=== PATIENT | female | born 1990 | race Caucasian/White ===

== ENCOUNTER 2019-03-07 16:30 | Outpatient (CLI) | payer MEDICAID ==
[2019-03-07 18:22] LABS: ADD UMIC NO; UR ASCORBIC ACID 20 mg/dL (NEGATIVE); UR BILIRUBIN (Dip) NEGATIVE (NEGATIVE); UR BLOOD (Dip) NEGATIVE (NEGATIVE); UR CLARITY CLEAR (CLEAR); UR COLOR YELLOW (YELLOW); UR GLUCOSE (Dip) NEGATIVE (NEGATIVE); UR KETONES (Dip) NEGATIVE (NEGATIVE); UR LEUKOCYTE ESTERASE (Dip) NEGATIVE Leu/ul (NEGATIVE); UR NITRITE (Dip) NEGATIVE (NEGATIVE); UR SPECIFIC GRAVITY (Dip) 1.011 (1.003-1.030); UR TOTAL PROTEIN (Dip) NEGATIVE (NEGATIVE); UR UROBILINOGEN (Dip) NEGATIVE (NEGATIVE)
[2019-03-07 18:27] LABS: ADD MAN DIFF? NO
[2019-03-07 18:29] LABS: BASOPHILS % 0.3 % (0.0-2.0); EOSINOPHILS % 0.2 % (0.0-7.0); HEMATOCRIT 36.5 % (37.0-47.0); HEMOGLOBIN 12.4 g/dl (12.0-16.0); LYMPHOCYTES # 1.7 10^3/ul (0.8-2.9); LYMPHOCYTES % 18.9 % (15.0-51.0); MEAN CORPUSCULAR HEMOGLOBIN 31.2 pg (29.0-33.0); MEAN CORPUSCULAR VOLUME 91.7 fl (82.0-101.0); MEAN PLATELET VOLUME 11.1 fl (7.4-10.4); MONOCYTE # 0.5 10^3/ul (0.3-0.9); NEUTROPHIL # 6.7 10^3/ul (1.6-7.5); NEUTROPHILS % 74.9 % (39.0-77.0); PLATELET COUNT 233 10^3/UL (140-415); RED BLOOD COUNT 3.98 10^6/ul (4.20-5.40); RED CELL DISTRIBUTION WIDTH 13.1 % (11.5-14.5)
[2019-03-07 18:48] LABS: ALANINE AMINOTRANSFERASE 16 IU/L (13-69); ALBUMIN 3.6 g/dl (3.3-4.9); ALBUMIN/GLOBULIN RATIO 1.09; ALKALINE PHOSPHATASE 208 IU/L (42-121); ANION GAP 12 (5-13); ASPARTATE AMINO TRANSFERASE 23 IU/L (15-46); BILIRUBIN,INDIRECT 0.3 mg/dl (0-1.1); BILIRUBIN,TOTAL 0.3 mg/dl (0.2-1.3); BLOOD UREA NITROGEN 12 mg/dl (7-20); CALCIUM 9.4 mg/dl (8.4-10.2); CARBON DIOXIDE 20 mmol/L (21-31); CHLORIDE 104 mmol/L (97-110); CREATININE 0.62 mg/dl (0.44-1.00); Estimated GFR > 60 mL/min (>60); GLUCOSE 91 mg/dl (70-220); INR 0.87; PARTIAL THROMBOPLASTIN TIME 25.6 Sec (23.0-35.0); POTASSIUM 3.9 mmol/L (3.5-5.1); PROTIME 11.9 Sec (11.9-14.9); PT RATIO 0.9; SODIUM 136 mmol/L (135-144); TOTAL PROTEIN 6.9 g/dl (6.1-8.1)
== END 2019-03-07 20:16 | disposition home or self-care (01) ==
LOC: OBT 16:30 → L-D 16:30 → OBT 20:16
DX: O14.93 Unspecified pre-eclampsia, third trimester (principal); O13.3 Gestational [pregnancy-induced] hypertension without significant proteinuria, third trimester; Z3A.38 38 weeks gestation of pregnancy
CPT/HCPCS: 76815; 76818; 80053; 81003; 84560; 85025; 85384; 85610; 85730

== ENCOUNTER 2019-03-10 14:50 | Outpatient (CLI) | payer MEDICAID ==
[2019-03-10 15:58] LABS: COLLECTION PERIOD 24 hrs
[2019-03-10 16:33] LABS: COLLECTION PERIOD 24 hrs; CREATININE CLEARANCE 36.1 mls/min (84.0-162.0); CREATININE,URINE RANDOM 21.49 mg/dl (20-320); SCRET 0.62 mg/dl (0.44-1.00); VOLUME 1500 ml/24hrs; VOLUME 1500 mls
[2019-03-10 16:57] LABS: ADD MAN DIFF? NO
[2019-03-10 17:01] LABS: WHITE BLOOD COUNT 6.5 10^3/ul (4.8-10.8)
[2019-03-10 17:01] LABS: BASOPHILS % 0.5 % (0.0-2.0); EOSINOPHILS % 0.3 % (0.0-7.0); HEMATOCRIT 36.8 % (37.0-47.0); HEMOGLOBIN 12.5 g/dl (12.0-16.0); LYMPHOCYTES # 1.6 10^3/ul (0.8-2.9); LYMPHOCYTES % 24.3 % (15.0-51.0); MEAN CORPUSCULAR HEMOGLOBIN 30.9 pg (29.0-33.0); MEAN CORPUSCULAR VOLUME 91.1 fl (82.0-101.0); MONOCYTE # 0.5 10^3/ul (0.3-0.9); NEUTROPHIL # 4.4 10^3/ul (1.6-7.5); NEUTROPHILS % 67.4 % (39.0-77.0); PLATELET COUNT 245 10^3/UL (140-415); RED BLOOD COUNT 4.04 10^6/ul (4.20-5.40); RED CELL DISTRIBUTION WIDTH 13.1 % (11.5-14.5)
[2019-03-10 17:22] LABS: INR 0.91; PROTIME 12.4 Sec (11.9-14.9)
[2019-03-10 17:26] LABS: ALANINE AMINOTRANSFERASE 22 IU/L (13-69); ALBUMIN 3.7 g/dl (3.3-4.9); ALBUMIN/GLOBULIN RATIO 1.05; ALKALINE PHOSPHATASE 210 IU/L (42-121); ANION GAP 11 (5-13); ASPARTATE AMINO TRANSFERASE 39 IU/L (15-46); BILIRUBIN,INDIRECT 0.4 mg/dl (0-1.1); BILIRUBIN,TOTAL 0.4 mg/dl (0.2-1.3); BLOOD UREA NITROGEN 12 mg/dl (7-20); CALCIUM 9.9 mg/dl (8.4-10.2); CARBON DIOXIDE 22 mmol/L (21-31); CHLORIDE 104 mmol/L (97-110); CREATININE 0.69 mg/dl (0.44-1.00); Estimated GFR > 60 mL/min (>60); GLUCOSE 86 mg/dl (70-220); POTASSIUM 4.6 mmol/L (3.5-5.1); SODIUM 137 mmol/L (135-144); TOTAL PROTEIN 7.2 g/dl (6.1-8.1); URIC ACID 6.9 mg/dl (3.1-7.9)
== END 2019-03-10 20:50 | disposition left against medical advice (07) ==
LOC: OBT 14:50 → L-D 14:51 → OBT 20:50
DX: O13.3 Gestational [pregnancy-induced] hypertension without significant proteinuria, third trimester (principal); Z3A.39 39 weeks gestation of pregnancy
CPT/HCPCS: 76818; 80053; 82575; 84156; 84560; 85025; 85384; 85610; 85730

== ENCOUNTER 2019-03-12 06:40 | Inpatient (IN) | payer MEDICAID ==
[2019-03-12] MEDS ORDERED: LIDOCAINE 1% (MPF) 30 ML INJ INJ (07:30)
[2019-03-12] MEDS ORDERED: MISOPROSTOL 200 MCG TAB PR (07:30)
[2019-03-12] MEDS ORDERED: OXYTOCIN 30 UNITS/LR 500 ML IV ×5 (07:30→23:00)
[2019-03-12] MEDS ORDERED: METHYLERGONOVINE 0.2 MG INJ IM ×2 (07:30→23:00)
[2019-03-12] MEDS: LACTATED RINGER'S 1,000 ML IV ×2 (09:32→18:20)
[2019-03-12 09:42] LABS: ADD MAN DIFF? NO
[2019-03-12 09:47] LABS: WHITE BLOOD COUNT 7.7 10^3/ul (4.8-10.8)
[2019-03-12 09:47] LABS: BASOPHILS % 0.4 % (0.0-2.0); EOSINOPHILS % 0.5 % (0.0-7.0); HEMOGLOBIN 13.6 g/dl (12.0-16.0); LYMPHOCYTES # 2.2 10^3/ul (0.8-2.9); MEAN CORPUSCULAR HEMOGLOBIN 30.4 pg (29.0-33.0); MEAN CORPUSCULAR HGB CONC 33.2 g/dl (32.0-37.0); MEAN CORPUSCULAR VOLUME 91.7 fl (82.0-101.0); MEAN PLATELET VOLUME 11.2 fl (7.4-10.4); MONOCYTE # 0.5 10^3/ul (0.3-0.9); MONOCYTES % 6.4 % (0.0-11.0); NEUTROPHIL # 4.8 10^3/ul (1.6-7.5); NEUTROPHILS % 62.8 % (39.0-77.0); PLATELET COUNT 257 10^3/UL (140-415); RED BLOOD COUNT 4.47 10^6/ul (4.20-5.40)
[2019-03-12] MEDS ORDERED: OXYTOCIN 30 UNITS/LR 500 ML BAG IV (10:01)
[2019-03-12 10:03] LABS: ALANINE AMINOTRANSFERASE 17 IU/L (13-69); ALBUMIN 4.2 g/dl (3.3-4.9); ALKALINE PHOSPHATASE 263 IU/L (42-121); ANION GAP 11 (5-13); ASPARTATE AMINO TRANSFERASE 32 IU/L (15-46); BILIRUBIN,INDIRECT 0.4 mg/dl (0-1.1); BILIRUBIN,TOTAL 0.4 mg/dl (0.2-1.3); BLOOD UREA NITROGEN 11 mg/dl (7-20); CALCIUM 9.7 mg/dl (8.4-10.2); CARBON DIOXIDE 25 mmol/L (21-31); CHLORIDE 100 mmol/L (97-110); Estimated GFR > 60 mL/min (>60); GLUCOSE 73 mg/dl (70-220); POTASSIUM 4.9 mmol/L (3.5-5.1); SODIUM 136 mmol/L (135-144); URIC ACID 6.9 mg/dl (3.1-7.9)
[2019-03-12 10:06] LABS: INR 0.85; PROTIME 11.7 Sec (11.9-14.9); PT RATIO 0.9
[2019-03-12 10:07] LABS: PARTIAL THROMBOPLASTIN TIME 26.3 Sec (23.0-35.0)
[2019-03-12] MEDS ORDERED: FENTAnyl 2MCG/ML-ROPIV 0.2% 100 ML (12:38)
[2019-03-12] MEDS ORDERED: AMPICILLIN 1 GM/NS (PMX) 50 ML IVPB (13:00)
[2019-03-12] MEDS ORDERED: FENTAnyl 2MCG/ML-ROPIV 0.2% 100 ML BAG EPI (13:30)
[2019-03-12] MEDS ORDERED: DIPHENHYDRAMINE 50 MG INJ IV ×2 (13:30→23:00)
[2019-03-12] MEDS ORDERED: ONDANSETRON 4 MG INJ IV ×3 (13:30→23:00)
[2019-03-12] MEDS ORDERED: NALOXONE (0.4 MG/ML) INJ IV (13:30)
[2019-03-12] MEDS ORDERED: AMPICILLIN 2 GM/NS (PMX) 100 ML (19:29)
[2019-03-12] MEDS ORDERED: MINERAL OIL LIGHT 10 ML VIAL TOP (19:30)
[2019-03-12] MEDS: AMPICILLIN 2 GM/NS (PMX) 100 ML IVPB (19:30)
[2019-03-12] MEDS: IBUPROFEN 600 MG TAB PO (21:30)
[2019-03-12 21:32] LABS: RAPID PLASMA REAGIN NONREACTIVE (NR)
[2019-03-12] MEDS ORDERED: MIDAZOLAM 1 MG/ML 2 ML INJ (22:01)
[2019-03-12] MEDS ORDERED: KETAMINE (100 MG/ML) 5 ML VIAL (22:01)
[2019-03-12] MEDS ORDERED: FENTAnyl 50 MCG/ML VIAL (22:01)
[2019-03-12] MEDS ORDERED: PHENYLephrine 10 MG INJ ×2 (22:16→22:41)
[2019-03-12 22:44] LABS: ADD MAN DIFF? NO
[2019-03-12 22:45] LABS: BASOPHIL # 0.1 10^3/ul (0.0-0.1); BASOPHILS % 0.2 % (0.0-2.0); HEMATOCRIT 24.7 % (37.0-47.0); LYMPHOCYTES # 2.9 10^3/ul (0.8-2.9); LYMPHOCYTES % 13.2 % (15.0-51.0); MEAN CORPUSCULAR HEMOGLOBIN 30.8 pg (29.0-33.0); MEAN CORPUSCULAR HGB CONC 32.4 g/dl (32.0-37.0); MONOCYTE # 0.5 10^3/ul (0.3-0.9); MONOCYTES % 2.2 % (0.0-11.0); NEUTROPHIL # 18.3 10^3/ul (1.6-7.5); NEUTROPHILS % 82.7 % (39.0-77.0); PLATELET COUNT 196 10^3/UL (140-415); RED CELL DISTRIBUTION WIDTH 13.1 % (11.5-14.5)
[2019-03-12 22:45] LABS: WHITE BLOOD COUNT 22.2 10^3/ul (4.8-10.8)
[2019-03-12] MEDS ORDERED: DIBUCAINE 1% 30 GM OINT TOP (23:00)
[2019-03-12] MEDS ORDERED: MAGNESIUM HYDROXIDE 30ML CUP PO (23:00)
[2019-03-12] MEDS ORDERED: MEPERIDINE 25 MG INJ IV (23:00)
[2019-03-12] MEDS ORDERED: SENNA/DOCUSATE NA (8.6MG/50MG) TAB PO (23:00)
[2019-03-12] MEDS ORDERED: EPHEDrine 25 MG/5 ML SYG IV (23:00)
[2019-03-12] MEDS ORDERED: morphine 2 MG INJ IV (23:00)
[2019-03-12] MEDS ORDERED: FENTAnyl 50 MCG/ML VIAL IV (23:00)
[2019-03-12] MEDS ORDERED: ALBUMIN HUMAN 5% 250 ML IV (23:00)
[2019-03-12] MEDS ORDERED: CARBOPROST 250 MCG INJ IM (23:00)
[2019-03-12] MEDS ORDERED: METOCLOPRAMIDE 10 MG INJ IV (23:00)
[2019-03-12] MEDS ORDERED: ACETAMINOPHEN 325 MG TAB PO ×2 (23:00)
[2019-03-12] MEDS ORDERED: OXYCODONE/ACETAMINOPHEN (5/325) TAB PO (23:00)
[2019-03-12 23:29] LABS: INR 1.12; PROTIME 14.5 Sec (11.9-14.9); PT RATIO 1.1
[2019-03-12 23:30] LABS: PARTIAL THROMBOPLASTIN TIME 35.8 Sec (23.0-35.0)
[2019-03-13] MEDS ORDERED: PIPER-TAZO 3.375 GM IV (PMX) 100 ML IVPB
[2019-03-13] MEDS: LACTATED RINGER'S 1,000 ML IV* (01:11)
[2019-03-13 01:20] LABS: ADD MAN DIFF? NO
[2019-03-13 01:21] LABS: WHITE BLOOD COUNT 33.1 10^3/ul (4.8-10.8)
[2019-03-13 01:21] LABS: ABNORMAL IP MESSAGE 1; BASOPHIL # 0.1 10^3/ul (0.0-0.1); BASOPHILS % 0.2 % (0.0-2.0); HEMATOCRIT 20.9 % (37.0-47.0); LYMPHOCYTES # 1.6 10^3/ul (0.8-2.9); LYMPHOCYTES % 4.7 % (15.0-51.0); MEAN CORPUSCULAR HEMOGLOBIN 31.1 pg (29.0-33.0); MEAN CORPUSCULAR HGB CONC 33.5 g/dl (32.0-37.0); MEAN CORPUSCULAR VOLUME 92.9 fl (82.0-101.0); MEAN PLATELET VOLUME 10.9 fl (7.4-10.4); MONOCYTE # 1.2 10^3/ul (0.3-0.9); MONOCYTES % 3.7 % (0.0-11.0); NEUTROPHIL # 29.4 10^3/ul (1.6-7.5); NEUTROPHILS % 89.1 % (39.0-77.0); PLATELET COUNT 186 10^3/UL (140-415); RED BLOOD COUNT 2.25 10^6/ul (4.20-5.40); RED CELL DISTRIBUTION WIDTH 13.2 % (11.5-14.5)
[2019-03-13] MEDS: PIPER-TAZO 3.375 GM IV (PMX) 100 ML IVPB ×4 (01:22→22:32)
[2019-03-13] MEDS: LACTATED RINGER'S 1,000 ML IV ×3 (01:30→17:30)
[2019-03-13 01:43] LABS: POSITIVE DIFF @See below
[2019-03-13 01:44] LABS: ALANINE AMINOTRANSFERASE 23 IU/L (13-69); ALBUMIN 1.7 g/dl (3.3-4.9); ALBUMIN/GLOBULIN RATIO 0.94; ALKALINE PHOSPHATASE 100 IU/L (42-121); ANION GAP 4 (5-13); ASPARTATE AMINO TRANSFERASE 45 IU/L (15-46); BILIRUBIN,INDIRECT 0.4 mg/dl (0-1.1); BILIRUBIN,TOTAL 0.4 mg/dl (0.2-1.3); BLOOD UREA NITROGEN 12 mg/dl (7-20); CALCIUM 7.2 mg/dl (8.4-10.2); CARBON DIOXIDE 21 mmol/L (21-31); CHLORIDE 105 mmol/L (97-110); CREATININE 0.82 mg/dl (0.44-1.00); Estimated GFR > 60 mL/min (>60); GLUCOSE 89 mg/dl (70-220); POTASSIUM 4.7 mmol/L (3.5-5.1); SODIUM 130 mmol/L (135-144); TOTAL PROTEIN 3.5 g/dl (6.1-8.1)
[2019-03-13] MEDS: CARBOPROST 250 MCG INJ IM (01:44)
[2019-03-13] MEDS: MISOPROSTOL 200 MCG TAB PR (01:45)
[2019-03-13] MEDS ORDERED: VANCOMYCIN IV PER PHARMACY XX (04:30)
[2019-03-13 05:10] LABS: ADD UMIC NO; UR ASCORBIC ACID NEGATIVE (NEGATIVE); UR BILIRUBIN (Dip) NEGATIVE (NEGATIVE); UR BLOOD (Dip) NEGATIVE (NEGATIVE); UR CLARITY CLEAR (CLEAR); UR COLOR YELLOW (YELLOW); UR GLUCOSE (Dip) NEGATIVE (NEGATIVE); UR KETONES (Dip) NEGATIVE (NEGATIVE); UR LEUKOCYTE ESTERASE (Dip) NEGATIVE Leu/ul (NEGATIVE); UR NITRITE (Dip) NEGATIVE (NEGATIVE); UR SPECIFIC GRAVITY (Dip) 1.019 (1.003-1.030); UR TOTAL PROTEIN (Dip) NEGATIVE (NEGATIVE); UR UROBILINOGEN (Dip) NEGATIVE (NEGATIVE)
[2019-03-13 05:13] LABS: ADD MAN DIFF? NO
[2019-03-13] MEDS: WITCH HAZEL/GLYCERIN PAD PR (05:14)
[2019-03-13] MEDS: BENZOCAINE 20% 56 ML SPRAY TOP (05:15)
[2019-03-13] MEDS: LANOLIN HPA 1 PKT TOP (05:15)
[2019-03-13] MEDS: OXYTOCIN 30 UNITS/LR 500 ML IV (05:17)
[2019-03-13 05:22] LABS: ABNORMAL IP MESSAGE 1; BASOPHIL # 0.1 10^3/ul (0.0-0.1); BASOPHILS % 0.2 % (0.0-2.0); HEMATOCRIT 17.7 % (37.0-47.0); LYMPHOCYTES # 2.1 10^3/ul (0.8-2.9); MEAN CORPUSCULAR HEMOGLOBIN 31.3 pg (29.0-33.0); MEAN CORPUSCULAR HGB CONC 33.9 g/dl (32.0-37.0); MEAN CORPUSCULAR VOLUME 92.2 fl (82.0-101.0); MEAN PLATELET VOLUME 11.3 fl (7.4-10.4); MONOCYTE # 0.9 10^3/ul (0.3-0.9); MONOCYTES % 3.1 % (0.0-11.0); NEUTROPHIL # 26.5 10^3/ul (1.6-7.5); NEUTROPHILS % 88.7 % (39.0-77.0); PLATELET COUNT 158 10^3/UL (140-415); RED BLOOD COUNT 1.92 10^6/ul (4.20-5.40); RED CELL DISTRIBUTION WIDTH 13.2 % (11.5-14.5)
[2019-03-13 05:22] LABS: WHITE BLOOD COUNT 29.9 10^3/ul (4.8-10.8)
[2019-03-13 05:42] LABS: POSITIVE DIFF @See below
[2019-03-13 05:55] LABS: LACTIC ACID 2.4 mmol/L (0.5-2.0)
[2019-03-13] MEDS ORDERED: CEFAZOLIN 1 GM/50 ML (PMX) 50 ML IVPB (06:00)
[2019-03-13] MEDS ORDERED: CLINDAMYCIN 900 MG/D5W (PMX) 50 ML IVPB (06:00)
[2019-03-13] MEDS: VANCOMYCIN HCL 1.25 GM in SOD CHLORIDE 0.9% 250 ML IVPB (06:41)
[2019-03-13 09:36] LABS: BAND NEUTROPHILS #M 6.2 10^3/ul (0.0-0.6); BAND NEUTROPHILS % (M) 21 % (0-4); HYPOCHROMASIA 2+ (0-0); LYMPHOCYTES #M 0.5 10^3/ul (0.8-2.9); LYMPHOCYTES % (M) 2 % (15-51); MONOCYTE #M 0.2 10^3/ul (0.3-0.9); MONOCYTES % (M) 1 % (0-11); PLATELET ESTIMATE NORMAL; SEG NEUT #M 24.6 10^3/ul (1.6-7.5); SEGMENTED NEUTROPHILS (M) % 76 % (39-77); SMUDGE%M 4 % (0-0)
[2019-03-13] MEDS: DIPHENHYDRAMINE 25 MG CAP PO (10:08)
[2019-03-13] MEDS: ACETAMINOPHEN 325 MG TAB PO (10:09)
[2019-03-13 13:08] LABS: IMMEDIATE SPIN CROSSMATCH 1 3
[2019-03-13] MEDS: IBUPROFEN 600 MG TAB PO (17:45)
[2019-03-13] MEDS: VANCOMYCIN 1 GM 250 ML IVPB (17:46)
[2019-03-13 20:35] LABS: ADD MAN DIFF? NO
[2019-03-13 20:37] LABS: WHITE BLOOD COUNT 19.1 10^3/ul (4.8-10.8)
[2019-03-13 20:37] LABS: BASOPHILS % 0.2 % (0.0-2.0); EOSINOPHILS % 0.1 % (0.0-7.0); HEMATOCRIT 21.9 % (37.0-47.0); HEMOGLOBIN 7.4 g/dl (12.0-16.0); LYMPHOCYTES % 10.4 % (15.0-51.0); MEAN CORPUSCULAR HEMOGLOBIN 30.1 pg (29.0-33.0); MEAN CORPUSCULAR HGB CONC 33.8 g/dl (32.0-37.0); MEAN PLATELET VOLUME 10.2 fl (7.4-10.4); MONOCYTE # 0.6 10^3/ul (0.3-0.9); MONOCYTES % 3.1 % (0.0-11.0); NEUTROPHIL # 16.3 10^3/ul (1.6-7.5); NEUTROPHILS % 85.5 % (39.0-77.0); PLATELET COUNT 120 10^3/UL (140-415); RED BLOOD COUNT 2.46 10^6/ul (4.20-5.40); RED CELL DISTRIBUTION WIDTH 14.6 % (11.5-14.5)
[2019-03-14] MEDS: LACTATED RINGER'S 1,000 ML IV ×3 (01:30→17:30)
[2019-03-14] MEDS: IBUPROFEN 600 MG TAB PO ×2 (04:51→15:04)
[2019-03-14] MEDS: PIPER-TAZO 3.375 GM IV (PMX) 100 ML IVPB ×3 (05:25→22:32)
[2019-03-14] MEDS: VANCOMYCIN 1 GM 250 ML IVPB ×2 (06:25→17:45)
[2019-03-14 11:23] LABS: ADD MAN DIFF? NO
[2019-03-14 11:25] LABS: WHITE BLOOD COUNT 20.3 10^3/ul (4.8-10.8)
[2019-03-14 11:25] LABS: BASOPHILS % 0.2 % (0.0-2.0); EOSINOPHILS % 0.2 % (0.0-7.0); HEMATOCRIT 21.8 % (37.0-47.0); HEMOGLOBIN 7.4 g/dl (12.0-16.0); LYMPHOCYTES # 2.2 10^3/ul (0.8-2.9); LYMPHOCYTES % 10.8 % (15.0-51.0); MEAN CORPUSCULAR HEMOGLOBIN 29.8 pg (29.0-33.0); MEAN CORPUSCULAR HGB CONC 33.9 g/dl (32.0-37.0); MEAN CORPUSCULAR VOLUME 87.9 fl (82.0-101.0); MEAN PLATELET VOLUME 10.7 fl (7.4-10.4); MONOCYTE # 0.6 10^3/ul (0.3-0.9); NEUTROPHIL # 17.2 10^3/ul (1.6-7.5); PLATELET COUNT 131 10^3/UL (140-415); RED BLOOD COUNT 2.48 10^6/ul (4.20-5.40); RED CELL DISTRIBUTION WIDTH 15.1 % (11.5-14.5)
[2019-03-14 18:08] LABS: VANCOMYCIN,TROUGH 12.2 ug/ml (10.0-20.0)
[2019-03-14] MEDS: FERROUS SULFATE (EC) 325 MG TAB PO (21:30)
[2019-03-15] MEDS: LACTATED RINGER'S 1,000 ML IV (01:30)
[2019-03-15] MEDS: PIPER-TAZO 3.375 GM IV (PMX) 100 ML IVPB (05:23)
[2019-03-15] MEDS: VANCOMYCIN 1 GM 250 ML IVPB (06:44)
[2019-03-15 08:30] LABS: ADD MAN DIFF? NO
[2019-03-15 08:34] LABS: ABNORMAL IP MESSAGE 1; BASOPHILS % 0.3 % (0.0-2.0); EOSINOPHILS # 0.1 10^3/ul (0.0-0.5); EOSINOPHILS % 0.6 % (0.0-7.0); HEMATOCRIT 20.2 % (37.0-47.0); LYMPHOCYTES # 2.2 10^3/ul (0.8-2.9); LYMPHOCYTES % 18.7 % (15.0-51.0); MEAN CORPUSCULAR HEMOGLOBIN 29.4 pg (29.0-33.0); MEAN CORPUSCULAR HGB CONC 33.2 g/dl (32.0-37.0); MEAN CORPUSCULAR VOLUME 88.6 fl (82.0-101.0); MEAN PLATELET VOLUME 10.6 fl (7.4-10.4); MONOCYTE # 0.3 10^3/ul (0.3-0.9); MONOCYTES % 2.9 % (0.0-11.0); NEUTROPHIL # 8.8 10^3/ul (1.6-7.5); NEUTROPHILS % 76.8 % (39.0-77.0); PLATELET COUNT 151 10^3/UL (140-415); RED BLOOD COUNT 2.28 10^6/ul (4.20-5.40); RED CELL DISTRIBUTION WIDTH 14.9 % (11.5-14.5)
[2019-03-15 08:34] LABS: WHITE BLOOD COUNT 11.5 10^3/ul (4.8-10.8)
[2019-03-15 08:41] LABS: HEMOGLOBIN 6.7 g/dl (12.0-16.0); POSITIVE DIFF @See below
[2019-03-15] MEDS: FERROUS SULFATE (EC) 325 MG TAB PO ×2 (09:57→14:11)
[2019-03-15 12:11] LABS: HEMATOCRIT 21.3 % (37.0-47.0); HEMOGLOBIN 7.3 g/dl (12.0-16.0)
== END 2019-03-15 14:20 | disposition home or self-care (01) | DRG 807 ==
LOC: OBT 06:40 → PP1 03-13 03:03 → L-D 06:40 → OBT 06:50 → L-D 06:50
PROC: 10E0XZZ Delivery of Products of Conception, External Approach (ICD-10-PCS; principal; 2019-03-12)
PROC: 0KQM0ZZ Repair Perineum Muscle, Open Approach (ICD-10-PCS; 2019-03-12)
PROC: 0US9XZZ Reposition Uterus, External Approach (ICD-10-PCS; 2019-03-12)
DX: O13.4 Gestational [pregnancy-induced] hypertension without significant proteinuria, complicating childbirth (principal); Z37.0 Single live birth; Z3A.39 39 weeks gestation of pregnancy; O70.1 Second degree perineal laceration during delivery; O69.81X0 Labor and delivery complicated by cord around neck, without compression, not applicable or unspecified; O72.1 Other immediate postpartum hemorrhage; O71.2 Postpartum inversion of uterus
CPT/HCPCS: 36430; 62322; 71045; 74018; 76815; 80053; 80202; 81003; 83605; 84560; 85014; 85018; 85025; 85384; 85610; 85730; 86592; 86850; 86900; 86901; 86920; 87040-91; 87086; 88307